=== PATIENT | male | born 1945 | race Caucasian/White ===

== ENCOUNTER 2017-12-15 07:01 | Day surgery (SDC) | payer MEDICARE, OTHER ==
[~2017-12-15 07:01] MED LIST: DIAZEPAM 5 MG TAB PO; DIPHENHYDRAMINE 50 MG CAP PO; FAMOTIDINE 20 MG TAB PO; SOD CHLORIDE 0.45% 1,000 ML IV
[2017-12-15 07:48] LABS: ADD MAN DIFF? NO
[2017-12-15 07:52] LABS: WHITE BLOOD COUNT 7.1 10^3/ul (4.8-10.8)
[2017-12-15 07:52] LABS: BASOPHILS % 0.3 % (0.0-2.0); EOSINOPHILS # 0.1 10^3/ul (0.0-0.5); HEMATOCRIT 41.6 % (42.0-52.0); HEMOGLOBIN 14.3 g/dl (14.0-18.0); LYMPHOCYTES % 28.2 % (15.0-51.0); MEAN CORPUSCULAR HEMOGLOBIN 29.6 pg (29.0-33.0); MEAN CORPUSCULAR HGB CONC 34.4 g/dl (32.0-37.0); MEAN CORPUSCULAR VOLUME 86.1 fl (82.0-101.0); MEAN PLATELET VOLUME 9.5 fl (7.4-10.4); MONOCYTE # 0.4 10^3/ul (0.3-0.9); MONOCYTES % 5.9 % (0.0-11.0); NEUTROPHIL # 4.5 10^3/ul (1.6-7.5); PLATELET COUNT 159 10^3/UL (140-415); RED BLOOD COUNT 4.83 10^6/ul (4.70-6.10); RED CELL DISTRIBUTION WIDTH 12.9 % (11.5-14.5)
[2017-12-15 08:14] LABS: ANION GAP 12 (8-16); CARBON DIOXIDE 30 mmol/L (21-31); CHLORIDE 105 mmol/L (97-110); GLUCOSE 116 mg/dl (70-220)
[2017-12-15 08:15] LABS: CHOL/HDL RATIO 4.8 RATIO; CHOLESTEROL 122 mg/dl (100-200); HDL CHOLESTEROL 25 mg/dl (31-75); LDL CHOLESTEROL,CALCULATED 62 mg/dl; TRIGLYCERIDES 175 mg/dl (0-149)
[2017-12-15 08:20] LABS: BLOOD UREA NITROGEN 16 mg/dl (7-20); CALCIUM 9.4 mg/dl (8.4-10.2); CREATININE 0.94 mg/dl (0.61-1.24); POTASSIUM 4.4 mmol/L (3.5-5.1); SODIUM 143 mmol/L (135-144)
[2017-12-15 08:24] LABS: INR 1.01; PARTIAL THROMBOPLASTIN TIME 28.8 Sec (25.0-35.0); PROTIME 13.4 Sec (11.9-14.9)
[2017-12-15] MEDS ORDERED: LIDOCAINE 1% (MDV) 20 ML INJ (09:44)
[2017-12-15] MEDS ORDERED: HEPARIN 1000 UNITS/ML 10 ML INJ (09:44)
[2017-12-15] MEDS ORDERED: FENTAnyl 50 MCG/ML VIAL (09:44)
[2017-12-15] MEDS ORDERED: NITROGLYCERIN (IC) 100 MCG/ML INJ (09:45)
[2017-12-15] MEDS ORDERED: VERAPAMIL 5 MG INJ (09:45)
[2017-12-15] MEDS ORDERED: MIDAZOLAM 1 MG/ML 2 ML INJ (09:45)
[2017-12-15] MEDS ORDERED: SOD CHLORIDE 0.9% 1,000 ML IV (11:11)
[2017-12-15] MEDS ORDERED: morphine 2 MG INJ IV (11:30)
[2017-12-15] MEDS ORDERED: ONDANSETRON 4 MG INJ IV (11:30)
[2017-12-15] MEDS ORDERED: AL HYDROX/MG HYDROX/SIMETH 30 ML CUP PO (11:30)
[2017-12-15] MEDS ORDERED: ACETAMINOPHEN 325 MG TAB PO (11:30)
== END 2017-12-15 15:15 | disposition home or self-care (01) ==
LOC: SDS 07:01
DX: I25.10 Atherosclerotic heart disease of native coronary artery without angina pectoris (principal); I10 Essential (primary) hypertension; E78.5 Hyperlipidemia, unspecified
CPT/HCPCS: 71045; 80048; 80061; 85025; 85610; 85730; 93005; 93458